=== PATIENT | female | born 1930 | race Caucasian/White ===

== ENCOUNTER 2016-06-27 20:27 | Emergency (ER) | payer MEDICARE, OTHER ==
[~2016-06-27] VITALS: Ht 167.6 cm; Wt 95.5 kg
[2016-06-27 20:27] VITALS: Ht 167.6 cm; Wt 95.5 kg
[~2016-06-27 20:27] MED LIST: EPINEPHrine 0.1 MG/ML SYG ONE; NA BICARBONATE 8.4% 50 ML SYG ONE
--- NOTE | 2016-06-27 21:19 | ERA ---
ER Documentation Chief Complaint Date/Time DATE: 06/27/16 TIME: 21:12 Chief Complaint ALOC,respiratory distress, from [facility] HPI This is an 86-year-old female brought in in respiratory distress by EMS. Patient apparently been complaining of some abdominal pain all day long according to the family and EMS. The family states they told the nursing staff there about abdominal pain that they did not address it. Patient's mental status suddenly declined 20 minutes prior to arrival. EMS had no luck getting an IV placed because of severe diffuse edema. Patient was being bagged on arrival and had minimal to no responsiveness. There is no other history. The patient is nonverbal due to mental status ROS All systems reviewed and are negative except as per history of present illness. Allergies Allergies: Coded Allergies: Penicillins (Verified Allergy, Unknown, hives, 06/27/16) PMhx/Soc History of Surgery: No Anesthesia Reaction: No Hx Neurological Disorder: No Hx Respiratory Disorders: Yes (PNA,COPD) Hx Cardiac Disorders: Yes (CHF, HTNcute ischemic heart dz) Hx Psychiatric Problems: No Hx Miscellaneous Medical Probl: Yes (DM 2, iron def anemia,acute embolism & DVT Rt fem,morbid obesity) Smoking Status: Unknown if ever smoked FmHx Family History: No coronary disease Physical Exam Vitals Vital Signs Date Time Temp Pulse Resp B/P Pulse Ox O2 Delivery O2 Flow Rate FiO2 06/27/16 20:27 99.7 132 24 90/51 86 Physical Exam Const: [] Head: Atraumatic Eyes: Normal Conjunctiva, bilateral pupils midrange and not responsive ENT: Normal External Ears, Nose and Mouth. Neck: Full range of motion..~ No meningismus. Resp: Clear to auscultation bilaterally Cardio: Tachycardia, no murmurs Abd: Soft, non distended. Skin: No petechiae or rashes Back: No midline or flank tenderness Ext: No cyanosis severe edema to her legs with multiple wrapping dressings that are weeping, bilateral upper extremities with edema Neur: Not responding to verbal will slightly move her head due to painful stimulus Psych: Unable to obtain Procedures/MDM IV access was unobtainable by nursing staff. I tried to place a left external jugular IV was unsuccessful Doctor Landaverde placed a right femoral central line while I intubated the patient. Endotracheal Intubation by me: Pre assessment performed. See preceding note for details. Pre-oxygenation performed with 100% oxygen RSI: Performed w/o complication or hypoxic events. Medications as ordered. Blade: Mac 4 ET Tube: 7.5 cm Depth: 22 cm at the lip Intubation confirmed by colorimetric CO2, equal breath sounds, quiet over the stomach. Shortly thereafter the patient started to bradycardia down and she lost her pulse. CPR was initiated following ACLS protocol receiving multiple rounds of epinephrine and bicarbonate Family finally arrived and explained the situation to them. At this time the patient had been undergoing CPR for 15 minutes with asystole during rhythm checks the entire time. CPR was continued for another 3 minutes then called by me. Time of was 2107. Family at bedside Critical Care: Time: 30 minutes Treatments/Evaluations: Close monitoring and treatment of unstable vital signs, cardiorespiratory, and neurologic status, while maintaining tight balance of fluid, respiratory, and cardiac interventions outside of dictated procedures. Departure Diagnosis: Primary Impression: Cardiac arrest Condition: Critical YANELIS NELSON DO Jun 27, 2016 21:18
[2016-06-27] MEDS ORDERED: ALBU2.5V3 NEB (21:53)
[2016-06-27] MEDS ORDERED: ACET-141 PO (21:53)
[2016-06-27] MEDS ORDERED: DULR PR (21:54)
[2016-06-27] MEDS ORDERED: LUBI24CA7 PO (21:54)
[2016-06-27] MEDS ORDERED: FLEETPED PR (21:55)
[2016-06-27] MEDS ORDERED: LORA10TA3 PO (21:58)
[2016-06-27] MEDS ORDERED: LIDO700A45 TP (21:58)
[2016-06-27] MEDS ORDERED: METO-448 PO (22:00)
[2016-06-27] MEDS ORDERED: MAGN400O4 PO (22:00)
[2016-06-27] MEDS ORDERED: NOVO3I SC (22:01)
[2016-06-27] MEDS ORDERED: ASCO500C7 PO (22:02)
[2016-06-27] MEDS ORDERED: MEG40/1 PO (22:06)
[2016-06-27] MEDS ORDERED: MULT-105 PO (22:07)
[2016-06-27] MEDS ORDERED: ZINC220T PO (22:09)
[2016-06-27] MEDS ORDERED: AMIN30LI PO (22:09)
[2016-06-27] MEDS ORDERED: PANT40TA3 PO (22:10)
[2016-06-27] MEDS ORDERED: ONDA-43 PO (22:10)
== END 2016-06-28 01:00 | disposition expired ==
LOC: E/R 20:27
DX: I46.9 Cardiac arrest, cause unspecified (principal); J44.9 Chronic obstructive pulmonary disease, unspecified; I10 Essential (primary) hypertension; E11.9 Type 2 diabetes mellitus without complications; E66.01 Morbid (severe) obesity due to excess calories; Z68.34 Body mass index [BMI] 34.0-34.9, adult
CPT/HCPCS: 31500; 92950; 99291; J0171